=== PATIENT | male | born 1975 | race African-American/Black ===

== ENCOUNTER 2017-12-08 11:40 | Emergency (ER) | payer SELFPAY ==
[2017-12-08 12:37] LABS: BILIRUBIN,URINE NEGATIVE (NEG); CLARITY,URINE CLOUDY; COLOR,URINE YELLOW; GLUCOSE,URINE NEGATIVE (NEG); NITRITE,URINE NEGATIVE (NEG); PH,URINE 5.5; PROTEIN,URINE NEGATIVE (NEG-TRACE); UROBILINOGEN,URINE 0.2 mg/dL (0.2 mg/dL)
[2017-12-08 12:43] LABS: BACTERIA,URINE MODERATE /HPF (0-FEW); WBC,URINE TNTC /HPF (0-4)
[2017-12-08 12:44] LABS: RBC,URINE FOBS /HPF (0-2)
[2017-12-08] MEDS ORDERED: LIDOCAINE 1% PF 2 ML VIAL. (13:10)
[2017-12-08] MEDS: cefTRIAXone IM 250 MG VIAL IM (13:16)
[2017-12-08] MEDS: AZITHROMYCIN 250 MG TABLET. PO (13:16)
== END 2017-12-08 14:02 | disposition home or self-care (01) ==
LOC: ER 11:40
DX: Z11.3 Encounter for screening for infections with a predominantly sexual mode of transmission (principal); N39.0 Urinary tract infection, site not specified; I10 Essential (primary) hypertension
CPT/HCPCS: 81001; 87086; 87491; 87591; 96372; 99284-25; J0696; Q0111; Q0144